=== PATIENT | male | born 2000 | race Caucasian/White ===

== ENCOUNTER 2024-01-07 02:23 | Emergency (ER) | payer SELFPAY | END 2024-01-07 03:42 | disposition home or self-care (01) | LOC: JP.ED 02:23 | DX: S01.511A Laceration without foreign body of lip, initial encounter (principal); Z79.899 Other long term (current) drug therapy; F17.200 Nicotine dependence, unspecified, uncomplicated; X58.XXXA Exposure to other specified factors, initial encounter | CPT/HCPCS: 12013; 99282 ==